=== PATIENT | female | born 1960 | race Caucasian/White ===

== ENCOUNTER 2016-11-25 06:00 | Day surgery (SDC) | payer MEDICAID ==
[2016-11-25] MEDS ORDERED: LIDOCAINE 1% 2 ML INJ ONE (06:23)
[2016-11-25] MEDS ORDERED: LIDOCAINE 1% 2 ML INJ ID PRN (06:33)
[2016-11-25] MEDS ORDERED: LR 1,000 ML IV SCH (07:00)
--- NOTE | 2016-11-25 07:01 | PDANEPAE ---
ANE History of Present Illness routine ANE Past Medical History - Cardiovascular History Hx Hypertension: No Hx Arrhythmias: No Hx Chest Pain: No Hx Coronary Artery / Peripheral Vascular Disease: No Hx CHF / Valvular Disease: No Hx Palpitations: No - Pulmonary History Hx COPD: Yes Hx Asthma/Reactive Airway Disease: No Hx Recent Upper Respiratory Infection: No Hx Oxygen in Use at Home: No - Neurologic History Hx Cerebrovascular Accident: No Hx Seizures: No Hx Dementia: No - Endocrine History Hx Diabetes: No - Renal History Hx Renal Disorders: No - Liver History Hx Hepatic Disorders: No - Neurological & Psychiatric Hx Hx Neurological and Psychiatric Disorders: Yes - Cancer History Hx Cancer: No - Congenital Disorder History Hx Congenital Disorders: No - GI History Hx Gastrointestinal Disorders: Yes - Chronic Pain History Chronic Pain: No ANE Review of Systems - Exercise capacity METS (RN): 5 METS ANE Patient History - Allergies Allergies/Adverse Reactions: No Known Allergies Allergy (Unverified 03/14/16 16:38) - Home Medications Home Medications: Estradiol 11/18/16 [Last Taken 11/24/16] Gabapentin 11/18/16 [Last Taken 11/23/16] Herbals/Supplements -Info Only 11/18/16 [Last Taken Unknown] Xanax 11/18/16 [Last Taken 11/18/16] - NPO status NPO Since - Liquids (Date): 11/24/16 NPO Since - Liquids (Time): 22:01 NPO Since - Solids (Date): 11/24/16 NPO Since - Solids (Time): 07:00 - Smoking Hx Smoking Status: Light smoker - Family Anes Hx Family Hx Anesthesia Complications: NEG ANE Labs/Vital Signs - Vital Signs Blood Pressure: 134/89 Heart Rate: 74 Respiratory Rate: 16 O2 Sat (%): 98 Height: 163.83 cm Weight: 73.482 kg ANE Physical Exam - Airway Neck exam: FROM Mallampati Score: Class 2 Mouth exam: normal dental/mouth exam - Pulmonary Pulmonary: no respiratory distress - Cardiovascular Cardiovascular: regular rate and rhythym
[2016-11-25] MEDS ORDERED: PROPOFOL/EMULSION 500 MG/50 ML BOTTLE IV ONE ×2 (07:14→07:47)
[2016-11-25] MEDS ORDERED: MIDAZOLAM 2 MG/2 ML VIAL ONE (07:14)
--- NOTE | 2016-11-25 07:14 | PDGENHP ---
History & Physical Outpatient Chief Complaint: screening History of Present Illness: 56 chata old female with screening. Family hx of CRC Pertinent Past, Social, Family History: None Relevant Physical Exam: HEENT;anicteric. CV- RRR +s1s2. Lungs- CTAB. Abd- soft, nt, + bs. No g/r/
--- NOTE | 2016-11-25 07:31 | POSTANESTH ---
Post Anesthetic Evaluation Cardiovascular Status: Normal, Stable Respiratory Status: Normal, Stable Level of Consciousness/Mental Status: Mildly Sleepy, Arousable Pain Control: Adequate, Prn Tx Ordered Nausea/Vomiting Control: Adequate, Prn Tx Ordered Complications Possibly Related to Anesthesia: None Noted
[2016-11-25] MEDS ORDERED: LIDOCAINE 2% 100 MG/5 ML SYR ONE (07:47)
[2016-11-25] MEDS ORDERED: fentaNYL 100 MCG/2 ML INJ IVP PRN (07:57)
[2016-11-25] MEDS ORDERED: NALOXONE HCL 0.4 MG/ML INJ IVP PRN (07:57)
[2016-11-25] MEDS ORDERED: ONDANSETRON 4 MG/2 ML VIAL IVP PRN (07:57)
[2016-11-25] MEDS ORDERED: ALBUTEROL 3 ML DEYVIAL IH PRN (07:57)
[2016-11-25] MEDS ORDERED: LR 500 ML IV PRN (07:57)
--- NOTE | 2016-11-25 07:59 | POSTOPPROG ---
Post Op Note Date of Operation: 11/25/16 Surgeon: Moy Loaiza Anesthesia: IV Sedation Pre-op Diagnosis: family hx of CRC Post-op Diagnosis: polyps x 2. Tics Indication: family hx Procedure: colonoscopy with snare Findings: + Polyps, Tics Inf/Abcess present in the surg proc area at time of surgery?: No
--- NOTE | 2016-11-25 08:19 | GPN ---
[f rep st] PROCEDURE NOTE DATE OF PROCEDURE: 11/25/2016 PROCEDURE: Colonoscopy with snare polypectomy. INDICATION:Caren is a 56-year-old female with a family history of colon cancer who presents for surveillance colonoscopy. Her last colonoscopy was approximately 5 years ago. She presents for further evaluation. CONSENT: Risks, benefits, and alternatives of the procedure were discussed in great detail with the patient. Risks of infection, bleeding, perforation, and sedation were discussed. All questions answered, and informed consent obtained. MEDICATIONS: Propofol. Please see Anesthesia note for details. ESTIMATED BLOOD LOSS: Insignificant. COLONOSCOPIC EXAMINATION: A rectal exam was done, and no palpable masses felt. The Olympus colonoscope was introduced into the rectum and advanced to the cecum where the ileocecal valve and appendiceal orifice were seen. The quality of prep was good. The colonic mucosa was carefully examined on both insertion and withdrawal of the scope. Diverticulosis was noted of the sigmoid colon, descending colon, transverse colon, and ascending colon. A 4 mm sessile polyp was seen in the transverse colon and retrieved by snare polypectomy. Another 4mm sessile polyp was noted in the descending colon. This was snared and possibly retrieved. IMPRESSION: 1. Diverticulosis. 2. Colonic polyps x2. RECOMMENDED: 1. Follow up on biopsy results. 2. Fiber supplementation. 3. Repeat colonoscopy in 5 years. /[id number]/MODL MTDD
[2016-11-25 09:48] VITALS: BP 130/82; PULSE 70; RESP 14; TEMP 207.9; O2SAT 97
== END 2016-11-25 09:38 | disposition home or self-care (01) ==
LOC: FSGY 06:00
PROVIDERS: ATTEND Internal Medicine Gastroenterology
DX: K63.5 Polyp of colon (principal); K57.30 Diverticulosis of large intestine without perforation or abscess without bleeding; F17.210 Nicotine dependence, cigarettes, uncomplicated; Z80.0 Family history of malignant neoplasm of digestive organs
CPT/HCPCS: J2001; J2250; J2704

== ENCOUNTER 2016-12-02 16:21 | Emergency (ER) | payer MEDICAID ==
[2016-12-02 16:36] VITALS: BP 141/101; RESP 16; TEMP 98.2
--- NOTE | 2016-12-02 17:23 | EDPHY ---
H & P Time Seen by Provider: 12/02/16 17:01 HPI/ROS: HPI Rectal pain. History of hemorrhoids. 56-year-old female by private vehicle. She had a colonoscopy 1 week ago by medical equipment repair technician, Dr. Loaiza. She reports that since this time she has had worsening hemorrhoid pain which has been on relieved by [id number] preparations and donut cushions. She was told to come to the emergency department to be evaluated for possible thrombosed hemorrhoid. She describes pain which is worse when she has a bowel movement. She has not had any bleeding. No fever. No other complaints. ROS: Constitutional: No fever, no chills. No weakness. Respiratory: No cough. No shortness of breath. Cardiac: No chest pain, no palpitations. Gastrointestinal: No abdominal pain, no vomiting, no diarrhea. Genitourinary: No hematuria. No dysuria or increased frequency with urination. As above. Musculoskeletal: No back pain. No neck pain. No myalgias or arthralgias. Skin: No rashes. Neurological: No headache. No focal weakness or altered sensation. Past medical history: Hemorrhoids. Polyps removed on this recent colonoscopy. Social history: Here by herself. Nonsmoker. Physical Exam: General Appearance: Alert, no distress. Mildly anxious. This patient is responding to questions appropriately and in full sentences. This patient appears well-hydrated and well-nourished. Eyes: Pupils equal and round no pallor or injection. No lid edema, erythema or injection. Rectal exam: She has several, non thrombosed external hemorrhoids. Digital rectal exam, I did not palpate any internal hemorrhoids. No masses. No fullness or other abnormalities noted. She did not have significant pain on digital rectal exam. I did not see any anal fissures. No bleeding. Gastrointestinal: Abdomen is soft and nontender, no masses, bowel sounds normal. No focal tenderness at McBurney's point. No Baldwin sign. Neurological: Motor sensory function is grossly intact. Cranial nerves are normal. Gait is normal. Skin: Warm and dry, no rashes. Musculoskeletal: Neck is supple and nontender. Extremities are symmetrical. All joints range without pain or impingement. Psychiatric: No agitation. No depression. Database: EKG: Imaging: Procedures: Emergency department course: Vital signs reviewed. Mildly tachycardic in triage. Not tachycardic on my exam. Afebrile I explained to the patient that narcotic pain medication was not a good idea because it will promote constipation and make her hemorrhoids worse. I discussed ibuprofen dosing. I discussed treatment with Anusol/ hydrocortisone, stool softener treatment was reviewed and I discussed high- fiber diet. I will have her follow up with her medical equipment repair technician or a general surgeon for re-evaluation. She is in agreement with this plan. Return to emergency department precautions were reviewed with her. All of her questions were answered. She was discharged in good condition. Differential Diagnosis: The differential diagnosis on this patient includes but is not limited to external hemorrhoid. Anal fissure, thrombosed hemorrhoid, colonoscopy complication, colonic perforation unlikely. This represents a partial list of diagnoses considered. These considerations are based on history, physical exam , past history, reassessment and diagnostic testing. Smoking Status: Current every day smoker Constitutional: Initial Vital Signs Temperature (C) 36.8 C 12/02/16 16:30 Heart Rate 104 H 12/02/16 16:30 Respiratory Rate 16 12/02/16 16:30 Blood Pressure 141/101 H 12/02/16 16:30 O2 Sat (%) 96 12/02/16 16:30 O2 Delivery Mode Room Air Allergies/Adverse Reactions: No Known Allergies Allergy (Verified 12/02/16 16:33) Home Medications: Medication Instructions Recorded Estradiol 11/18/16 Gabapentin 11/18/16 Xanax 11/18/16 Departure - Departure Disposition: Home, Routine, Self-Care Clinical Impression: Hemorrhoids, Rectal pain Condition: Good Instructions: Hemorrhoids (ED) Additional Instructions: Read and follow provided instructions. Follow-up with your medical equipment repair technician for re-evaluation in 1-2 days. I have also provided you referral to a general surgeon for further management of your hemorrhoids. Ibuprofen dosin mg every 6 hours with meals for the next 3 days only. Go to the pharmacy and asked pharmacist for Anusol. This is a steroid perforation that I think will help you. Return to the emergency department for worsening pain, fever, bleeding or other serious concerns. Referrals: Nicole Keller PA [Primary Care Provider] - As per Instructions Mart Narayanan MD [Medical Doctor] - As per Instructions Moy Loaiza MD [Medical Doctor] - As per Instructions
[2016-12-02 17:37] VITALS: PULSE 89; O2SAT 95
== END 2016-12-02 17:28 | disposition home or self-care (01) ==
DX: K64.9 Unspecified hemorrhoids (principal); F17.200 Nicotine dependence, unspecified, uncomplicated

== ENCOUNTER → 2017-03-19 | Outpatient (CLI) | payer MEDICAID | LOC: FIMAGING 13:03 | PROVIDERS: ATTEND Physician Assistant | DX: M79.671 Pain in right foot (principal) ==

== ENCOUNTER → 2017-05-04 | Outpatient (CLI) | payer MEDICAID | LOC: FIMAGING 19:36 | PROVIDERS: ATTEND Internal Medicine | DX: M77.51 Other enthesopathy of right foot and ankle (principal) ==

== ENCOUNTER → 2018-04-04 | Outpatient (CLI) | payer MEDICAID | LOC: FIMAGING 09:55 | PROVIDERS: ATTEND Obstetrics & Gynecology | DX: Z12.31 Encounter for screening mammogram for malignant neoplasm of breast (principal); R14.0 Abdominal distension (gaseous) ==

== ENCOUNTER → 2018-08-05 | Outpatient (CLI) | payer MEDICAID | LOC: FIMAGING 15:19 | PROVIDERS: ATTEND Midwife | DX: R93.89 Abnormal findings on diagnostic imaging of other specified body structures (principal); N83.201 Unspecified ovarian cyst, right side ==